=== PATIENT | female | born 1985 | race Two or more races ===

== ENCOUNTER 2017-04-02 22:51 | Emergency (ER) | payer BC ==
[~2017-04-02] VITALS: Ht 170.2 cm; Wt 59.0 kg
[2017-04-02] MEDS ORDERED: Lidocaine 1% MPF 10mg/ml 5ml ONE (23:09)
[2017-04-02 23:10] VITALS: BP 144/82
[2017-04-02] MEDS ORDERED: Lidocaine 1% Plain 30 ml INJ ONE (23:15)
[2017-04-02] MEDS ORDERED: Morphine Sulfate 10mg/ml Inj ONE (23:27)
[2017-04-02] MEDS ORDERED: Morphine Sulfate 4mg/ml Inj IVP ONE (23:30)
[2017-04-03] MEDS ORDERED: Morphine Sulfate 10mg/ml Inj ONE
[2017-04-03] MEDS ORDERED: Morphine Sulfate 4mg/ml Inj IVP ONE
[2017-04-03] MEDS ORDERED: PERCOCET 5-3251 EACH ORAL (00:07)
[2017-04-03 01:10] VITALS: BP 116/73
--- NOTE | 2017-04-03 05:51 | Emergency Room Report ---
History of Present Illness General Chief Complaint: Upper Extremity Injury Source: Patient Present Illness HPI 31-year-old female presenting with left elbow pain. Patient's physician skateboarding, landed on an outstretched hand, felt a pop in her elbow, complaining of extreme pain, not able to move it, no head trauma or LOC Allergies: Uncoded Allergies: FLU SHOT (Allergy, Unknown, 04/02/17) Patient History Past Medical History: see triage record Past Surgical History: none Pertinent Family History: none Last Menstrual Period: unk Now: No Reviewed Nursing Documentation: PMH: Agreed, PSxH: Agreed Nursing Documentation-PMH Past Medical History: No Stated History Review of Systems All Other Systems: negative except mentioned in HPI Physical Exam Vital Signs Date Time Temp Pulse Resp B/P (MAP) Pulse Ox O2 Delivery O2 Flow Rate FiO2 04/02/17 23:01 98.2 96 20 144/82 98 Room Air Sp02 EP Interpretation: reviewed, normal General Appearance: alert, GCS 15, non-toxic, severe distress Head: normocephalic, atraumatic Eyes: bilateral eye normal inspection, bilateral eye PERRL, bilateral eye EOMI ENT: normal ENT inspection, normal pharynx, normal voice, moist mucus membranes Neck: normal inspection, full range of motion, supple Respiratory: normal inspection, lungs clear, normal breath sounds, no respiratory distress, no retraction, no wheezing, speaking full sentences, chest symmetrical Cardiovascular #1: normal inspection, regular rate, rhythm, no edema, normal capillary refill Cardiovascular #2: 2+ radial (R), 2+ radial (L) Gastrointestinal: normal inspection, non tender, soft, non-distended, no guarding Musculoskeletal: other - Left elbow appear superiorly dislocated, no open wounds, very tender to palpation, limited range of motion secondary to pain, pulses intact Neurologic: normal inspection, alert, oriented x3, responsive, motor strength/ tone normal, sensory intact, normal gait, speech normal Psychiatric: normal inspection, judgement/insight normal, memory normal Skin: normal inspection, normal color, no rash, warm/dry, well hydrated, normal turgor Procedures Splinting Splinting : Consent: Verbal Pre-Made Type: velcro Hand-Made Type: Splint: L shoulder/elbow immobilizer Pre-Proc Neuro Vasc Exam: normal Post-Proc Neuro Vasc Exam: normal Patient Tolerated: Well Complications: None Joint Reduction Joint Reduction : Consent: Verbal Joint Reduction Site: other - Left elbow Procedural Sedation: No Reduction Attempts: One Pre-Procedure NV Exam: Yes Post-Procedure NV Exam: Yes Post Joint Reduction Film: joint reduced Patient Tolerated: Well Complications: None Additional Procedure Procedure Narrative Intra-articular lidocaine block Sterile technique used Chlorhexidine, sterile gloves 10 mL of 1% lidocaine injected into the left elbow joint Adequate anesthesia obtained No complications Patient tolerated procedure well Medical Decision Making Diagnostic Impression: Primary Impression: Dislocation, elbow closed ER Course 31-year-old female with left elbow pain after falling on outstretched hand DDX: Likely left elbow dislocation rule out fracture Plan: Elbow x-ray, pain control ER course: Patient given IV medication X-ray show a posterior dislocation Lidocaine injected into left elbow joint Patient had closed reduction Successful Postreduction films show successful reduction, no fracture Patient discharged with shoulder immobilizer Pt feels much better neurovasc intact Disposition: Patient is to be discharged to home. Prescriptions given are Percocet The patient is to followup with orthopedic surgeon in one week Strict return precautions discussed with patient such as fever, chills, worsening/severe pain Please note that this Emergency Department Report was dictated using [employer] technology software, occasionally this can lead to erroneous entry secondary to interpretation by the dictation equipment Xray: Left elbow 3 view Indication: Pain EP Interpretation: Yes Interpretation: Posterior elbow dislocation no fracture Impression: Posterior elbow dislocation Electronically signed by Alhaji Weinstein MD Xray: Left elbow Complete Indication: Pain/post reduction EP Interpretation: Yes Interpretation: Successful reduction noted Impression: No acute disease Electronically signed by Alhaji Weinstein MD Last Vital Signs Date Time Temp Pulse Resp B/P (MAP) Pulse Ox O2 Delivery O2 Flow Rate FiO2 04/03/17 01:10 98.2 71 16 116/73 99 Room Air Disposition: HOME, SELF-CARE Condition: Improved Scripts Oxycodone/Acetaminophen 5-325* (PERCOCET 5-325 MG TABLET*) 1 Each Tablet 1 TAB ORAL Q4H Y for For Pain, #15 TAB 0 Refills Prov: Alhaji Weinstein M.D. 04/03/17 Referrals: NOT CHOSEN [facility]/,REFERRING (PCP) Patient Instructions: Elbow Dislocation, [id number] Additional Instructions: Please followup with an orthopedic doctor in one week without fail Alhaji Weinstein M.D. Apr 03, 2017 05:51
--- NOTE | 2017-04-03 09:35 | Diagnostic Imaging Report ---
Indication: PAIN, postreduction Technique: 2 views of the left elbow Comparison: 45 minutes earlier Findings: Interim reduction of previously demonstrated elbow dislocation. Previously demonstrated joint effusion is not clearly evident. No definite associated bony fracture Impression: Satisfactory reduction of previously demonstrated left elbow dislocation
--- NOTE | 2017-04-03 16:58 | Diagnostic Imaging Report ---
Indication: PAIN, trauma Technique: 2 views of the left elbow Comparison: None Findings: There is posterior complete dislocation of the radius and ulna relative to humerus. No definite bony fracture is demonstrated. Elevation of the posterior fat pad indicates joint effusion Impression: Positive for left elbow dislocation This agrees with the preliminary interpretation provided overnight by [facility].
== END 2017-04-03 01:10 | disposition home or self-care (01) ==
LOC: EMR 23:15
DX: S53.105A Unspecified dislocation of left ulnohumeral joint, initial encounter (principal); V00.131A Fall from skateboard, initial encounter; Y92.89 Other specified places as the place of occurrence of the external cause
CPT/HCPCS: 24600; 73070; 96374; 96375; 96376; 99284; J2001; J2270; J2405